=== PATIENT | male | born 1955 | race Caucasian/White ===

== ENCOUNTER 2018-09-11 20:04 | Inpatient (IN) ==
[2018-09-11] MEDS ORDERED: ASPIRIN 325 MG TABLET PO STA (20:16)
[2018-09-11] MEDS ORDERED: MORPHINE 4 MG/1 ML VIAL IV STA (22:26)
[2018-09-11] MEDS ORDERED: NITROGLYCERIN 2% OINT 1 INCH/GM PACK TOP STA (22:26)
[2018-09-11] MEDS ORDERED: ONDANSETRON 4 MG/2 ML VIAL IV STA (22:26)
[2018-09-11] MEDS ORDERED: ALUM/MAG/SIMETH/LIDO VISC 1:1 30 ML BOTTLE PO STA (22:26)
[2018-09-11 22:31] LABS: Basophils # 0.1 10*3/uL (0.0-0.2); Basophils % 0.9 % (0.0-0.8); Eosinophils # 0.9 10*3/uL (0.0-0.87); Hematocrit 39.5 VOL% (42.0-52.0); Hemoglobin 13.1 GM/DL (14.0-18.0); Immature Granulocytes % 1.9 %; Immature Granulocytes Absolute 0.25 #; Lymphocytes # 4.3 10*3/uL (1.4-4.0); Lymphocytes % 33.2 % (21.2-54.2); Mean Corpuscular HGB Conc 33.2 GM/DL (32-36); Mean Corpuscular Volume 83.3 FL (87-102); Mean Platelet Volume 10.8 FL (9.6-12.0); Platelet Count 339 T/CUMM (130-400); Red Blood Count 4.74 MC/CUMM (3.8-5.5); Red Cell Distribution Width 14.3 % (9.3-17.3)
[2018-09-11 22:36] LABS: PT Patient Result 10.5 SECS
[2018-09-11 22:46] LABS: Albumin 3.6 G/DL (3.4-5.0); Bilirubin,Total 0.9 MG/DL (0.2-1.0); Calcium 8.9 MG/DL (8.5-10.1); Osmolality,Calculated 283.4 MOS/KG (273-304); Total Protein 7.1 G/DL (6.4-8.3)
[2018-09-11] MEDS ORDERED: POTASSIUM CHLORIDE 20 MEQ TABLET PO STA (22:58)
[2018-09-12] MEDS ORDERED: GLUCAGON 1 MG VIAL IM PRN ×2 (01:50→17:52)
[2018-09-12] MEDS ORDERED: ACETAMINOPHEN 325 MG TABLET PO PRN (01:50)
[2018-09-12] MEDS ORDERED: ALBUTEROL/IPRATROPIUM 3 ML NEB RESP TX PRN (01:50)
[2018-09-12] MEDS ORDERED: DEXTROSE 50% 25 GM/50 ML SYRINGE IV PRN ×2 (01:50→17:52)
[2018-09-12] MEDS ORDERED: MORPHINE 4 MG/1 ML VIAL IV PRN (01:50)
[2018-09-12] MEDS ORDERED: SODIUM CHLORIDE 0.9% 1,000 ML IV SCH ×2 (01:50→12:30)
[2018-09-12] MEDS ORDERED: ONDANSETRON 4 MG/2 ML VIAL IV PRN (01:50)
[2018-09-12 04:52] LABS: Basophils # 0.1 10*3/uL (0.0-0.2); Basophils % 0.9 % (0.0-0.8); Hematocrit 36.5 VOL% (42.0-52.0); Hemoglobin 12.1 GM/DL (14.0-18.0); Immature Granulocytes % 2.2 %; Immature Granulocytes Absolute 0.25 #; Lymphocytes # 3.7 10*3/uL (1.4-4.0); Lymphocytes % 32.2 % (21.2-54.2); Mean Corpuscular HGB Conc 33.2 GM/DL (32-36); Mean Corpuscular Volume 82.4 FL (87-102); Mean Platelet Volume 10.8 FL (9.6-12.0); Monocytes % 6.3 % (1.7-12.7); Neutrophils % 49.4 % (38.7-73.9); Platelet Count 309 T/CUMM (130-400); Red Blood Count 4.43 MC/CUMM (3.8-5.5); Red Cell Distribution Width 14.3 % (9.3-17.3); White Blood Count 11.4 T/CUMM (4-12)
[2018-09-12 05:17] LABS: Albumin 3.1 G/DL (3.4-5.0); Bilirubin,Total 0.5 MG/DL (0.2-1.0); Calcium 8.7 MG/DL (8.5-10.1); Risk Ratio 3.15; Total Protein 6.2 G/DL (6.4-8.3); VLDL CHOLESTEROL 26.4 MG/DL
[2018-09-12] MEDS ORDERED: NITROGLYCERIN 2% OINT 1 INCH/GM PACK TOP SCH (06:00)
[2018-09-12] MEDS ORDERED: INSULIN REGULAR 100 UNIT/ML SUBCUT SCH (06:00)
[2018-09-12] MEDS: POTASSIUM CHLORIDE 20 MEQ TABLET PO PRN ×2 (06:13→11:23)
[2018-09-12] MEDS ORDERED: NITROGLYCERIN SL 0.4 MG TABLET SL PRN (07:54)
[2018-09-12] MEDS ORDERED: SODIUM CHLOR 0.45% KCL 20 MEQ 20 MEQ/1,000 ML BAG IV SCH (08:00)
[2018-09-12] MEDS: FUROSEMIDE 40 MG TABLET PO SCH ×2 (08:47→21:14)
[2018-09-12] MEDS: ISOSORBIDE DINITRATE 20 MG TABLET PO SCH ×2 (08:47→21:11)
[2018-09-12] MEDS: ASPIRIN 325 MG TABLET PO SCH (08:47)
[2018-09-12] MEDS: CLOPIDOGREL 75 MG TABLET PO SCH (08:47)
[2018-09-12] MEDS: SPIRONOLACTONE 50 MG TABLET PO SCH ×2 (08:47→21:13)
[2018-09-12] MEDS: sitaGLIPtin 25 MG TABLET PO SCH (08:48)
[2018-09-12] MEDS ORDERED: GABAPENTIN 600 MG PO SCH (09:00)
[2018-09-12] MEDS ORDERED: PANTOPRAZOLE 40 MG TABLET PO SCH (09:00)
[2018-09-12] MEDS ORDERED: ENOXAPARIN 120 MG/0.8 ML SYRINGE SUBCUT SCH (09:00)
[2018-09-12] MEDS ORDERED: DOCUSATE SODIUM 100 MG CAPSULE PO SCH (09:00)
[2018-09-12] MEDS ORDERED: ASPIRIN EC 81 MG TABLET PO SCH (09:00)
[2018-09-12] MEDS ORDERED: LISINOPRIL 10 MG TABLET PO SCH (09:00)
[2018-09-12] MEDS ORDERED: POTASSIUM CHLORIDE RIDER 10 MEQ in PREMIX 1 EACH IV PRN (11:15)
[2018-09-12] MEDS ORDERED: POTASSIUM CHLORIDE 20 MEQ/15 ML UDCUP PO ONE (11:42)
[2018-09-12] MEDS: INSULIN LISPRO 100 UNIT/ML SUBCUT SCH ×3 (12:10→20:32)
[2018-09-12 12:22] LABS: Apearance,Urine CLEAR (Clear); Bilirubin,Urine Negative (Negative); Blood, Urine Negative (Negative); Glucose,Urine (UA) Negative (Negative); Hyaline Casts,Urine 3 /LPF (0-3); Ketones,Urine Negative (Negative); Mucus,Urine Occasional /LPF (Occasional); Nitrite,Urine Negative (Negative); Protein,Urine Negative; RBC,Urine <1 /HPF (0-4); Squamous Epithelial Cell,Urine Occasional /HPF (0-10); Urine Color Yellow (Yellow); Urine Specific Gravity 1.008 (1.001-1.035); Urine Urobilinogen < 2.0 EU/DL (0.2-1.0)
[2018-09-12] MEDS ORDERED: ENOXAPARIN 100 MG/ML SYRINGE SUBCUT ONE (12:29)
[2018-09-12] MEDS ORDERED: DIAZEPAM 5 MG TABLET PO ONE (12:30)
[2018-09-12] MEDS ORDERED: MAGNESIUM SULF RIDER 2 GM in PREMIX 1 EACH IV PRN (12:30)
[2018-09-12] MEDS ORDERED: diphenhydrAMINE CAP 25 MG CAPSULE PO ONE (12:30)
[2018-09-12] MEDS ORDERED: LIDOCAINE 1% 20 ML VIAL ONE (14:54)
[2018-09-12] MEDS ORDERED: MIDAZOLAM 2 MG/2 ML VIAL ONE (16:58)
[2018-09-12] MEDS ORDERED: fentaNYL 100 MCG/2 ML VIAL ONE (16:59)
[2018-09-12] MEDS: PANTOPRAZOLE 40 MG TABLET PO SCH ×2 (18:21→21:12)
[2018-09-12] MEDS ORDERED: PRAMIPEXOLE 1 MG TABLET PO SCH (21:00)
[2018-09-12] MEDS ORDERED: ROSUVASTATIN 10 MG TABLET PO SCH (21:00)
[2018-09-12] MEDS ORDERED: traZODone 50 MG TABLET PO SCH (21:00)
[2018-09-12] MEDS ORDERED: ENOXAPARIN 80 MG/0.8 ML SYRINGE SUBCUT SCH (22:00)
[2018-09-12] MEDS ORDERED: CARISOPRODOL 350 MG TABLET PO PRN (22:12)
[2018-09-12] MEDS ORDERED: KETOROLAC 15 MG/1 ML VIAL IV ONE (22:15)
[2018-09-13 05:07] LABS: Basophils # 0.1 10*3/uL (0.0-0.2); Basophils % 0.8 % (0.0-0.8); Eosinophils % 9.6 % (0.00-10.9); Hematocrit 33.6 VOL% (42.0-52.0); Hemoglobin 11.1 GM/DL (14.0-18.0); Immature Granulocytes % 1.6 %; Immature Granulocytes Absolute 0.16 #; Lymphocytes # 3.2 10*3/uL (1.4-4.0); Lymphocytes % 31.9 % (21.2-54.2); Mean Corpuscular Volume 85.1 FL (87-102); Mean Platelet Volume 11.5 FL (9.6-12.0); Monocytes % 7.2 % (1.7-12.7); Neutrophils % 48.9 % (38.7-73.9); Platelet Count 242 T/CUMM (130-400); Red Blood Count 3.95 MC/CUMM (3.8-5.5); Red Cell Distribution Width 14.7 % (9.3-17.3); White Blood Count 9.9 T/CUMM (4-12)
[2018-09-13 05:47] LABS: Albumin 2.7 G/DL (3.4-5.0); Bilirubin,Total 0.6 MG/DL (0.2-1.0); Calcium 7.8 MG/DL (8.5-10.1); Osmolality,Calculated 284.1 MOS/KG (273-304); Thyroid Stimulating Hormone 1.38 uIU/ml (0.358-3.74); Total Protein 5.6 G/DL (6.4-8.3)
[2018-09-13] MEDS: POTASSIUM CHLORIDE 20 MEQ TABLET PO PRN ×3 (06:11→10:31)
[2018-09-13] MEDS ORDERED: LISINOPRIL 2.5 MG TABLET PO SCH (09:00)
[2018-09-13] MEDS: INSULIN LISPRO 100 UNIT/ML SUBCUT SCH (09:20)
[2018-09-13] MEDS: ISOSORBIDE DINITRATE 20 MG TABLET PO SCH (09:21)
[2018-09-13] MEDS: ASPIRIN 325 MG TABLET PO SCH (09:21)
[2018-09-13] MEDS: CLOPIDOGREL 75 MG TABLET PO SCH (09:22)
[2018-09-13] MEDS: sitaGLIPtin 25 MG TABLET PO SCH (09:22)
[2018-09-13] MEDS: FUROSEMIDE 40 MG TABLET PO SCH (09:22)
[2018-09-13] MEDS: SPIRONOLACTONE 50 MG TABLET PO SCH (09:22)
[2018-09-13] MEDS: PANTOPRAZOLE 40 MG TABLET PO SCH (09:25)
[2018-09-13 10:57] VITALS: BP 140/71
== END 2018-09-13 12:35 | disposition home or self-care (01) | DRG 287 ==
LOC: N.ED 20:04 → N.EDINP 09-12 00:24 → N.TELES 09-12 00:53
PROVIDERS: ADMIT Family Medicine; ATTEND Family Medicine
PROC: CLCCHCL (ICD-10-PCS; 2018-09-12 17:45)